=== PATIENT | male | born 1995 | race Caucasian/White ===

== ENCOUNTER 2020-12-16 18:51 | Emergency (ER) | payer OTHER ==
[2020-12-16 19:47] LABS: BASOPHIL 0.8 % (0-2); EOSINOPHIL 0.1 % (0-5); HCT 46.7 % (42.0-52.0); HGB 15.4 g/dl (13.2-18.0); LYMPHOCYTE 20.7 % (15-48); MCH 29.4 pg (25.0-31.0); MCV 89.3 fL (78.0-100.0); MPV 13.4 fL (6.0-9.5); NEUTROPHIL 71.3 % (41-80); NRBC 0; PLT 164 K/uL (150-400); RBC 5.23 M/uL (4.70-6.00); RDW 12.3 % (11.5-14.0); WBC 7.1 K/uL (4.0-10.5)
[2020-12-16 19:59] LABS: BILIRUBIN - TOTAL 0.7 mg/dL (0.2-1.0); BUN/CREAT RATIO (CALC) 12.6 RATIO; CREATININE 0.87 mg/dL (0.67-1.17); GLOBULIN (CALCULATION) 3.3 g/dL; POTASSIUM 4.3 mmol/L (3.5-5.1); TOTAL PROTEIN 7.3 g/dL (6.4-8.2)
[2020-12-16 20:37] LABS: BILIRUBIN NEGATIVE (NEGATIVE); BLOOD NEGATIVE Ery/uL (NEGATIVE); CLARITY CLEAR (CLEAR); COLOR YELLOW (YELLOW); GLUCOSE (U) NORMAL (NORMAL); LEUKOCYTES NEGATIVE Leu/uL (NEGATIVE); NITRITE NEGATIVE (NEGATIVE); PROTEIN NEGATIVE (NEGATIVE); UROBILINOGEN 0.2 mg/dL (0.2-1.0)
[2020-12-16] MEDS ORDERED: ONDANSETRON ODT4 MG PO (22:13)
== END 2020-12-16 22:20 | disposition home or self-care (01) ==
LOC: FER 18:51
PROVIDERS: Emergency Medicine
DX: B34.9 Viral infection, unspecified (principal); F17.200 Nicotine dependence, unspecified, uncomplicated; Z98.890 Other specified postprocedural states; Z20.822 Contact with and (suspected) exposure to COVID-19
CPT/HCPCS: 36415; 71045; 80053; 81003; 85025; 93005; J7120; U0002